=== PATIENT | female | born 1955 | race Caucasian/White ===

== ENCOUNTER → 2022-09-25 11:52 | Outpatient (CLI) | payer MEDICARE, SELFPAY ==
--- NOTE | ~2022-09-25 | US_ITS ---
Limited Abdominal Sonogram: Real-time sonographic imaging of the right upper quadrant was performed. Clinical History: Primary biliary cholangitis Findings: The liver appears normal echotexture. No intrahepatic biliary dilatation. 2.5 cm hyperecho ic mass noted, suggestive of hemangioma. Main portal vein demonstrates normal direction of flow. The gallbladder is absent, consistent with prior cholecystectomy. The common bile duct measures 7 mm. Th e visualized pancreas, aorta, and IVC are unremarkable. Impression: 2.5 cm hyperechoic hepatic mass, suggestive of hemangioma. This probably correlates with likely heman gioma seen on prior CT scan dated 12/08/2011. No biliary dilatation evident. Status post cholecystectomy. Reviewed, dictated and finalized at [facility]. [employer] DIRECT[employer] Impression: 2.5 cm hyperechoic hepatic mass, suggestive of hemangioma. This probably correl ates with likely hemangioma seen on prior CT scan dated 12/08/2011. No biliary dilatation evident. Status post cholecystectomy.
== END ==
PROVIDERS: Visit Provider Internal Medicine Gastroenterology
DX: K74.3 Primary biliary cirrhosis (principal); Z90.49 Acquired absence of other specified parts of digestive tract
CPT/HCPCS: 76705